=== PATIENT | female | born 1995 | race Two or more races ===

== ENCOUNTER 2024-07-12 16:40 | Emergency (ER) | payer OTHER ==
[~2024-07-12] VITALS: Ht 162.6 cm; Wt 57.6 kg
[2024-07-12 16:54] VITALS: BP 118/73; TEMP 97.9; O2SAT 99
[2024-07-12] MEDS ORDERED: IBUP-1490 PO (17:04)
== END 2024-07-12 17:07 | disposition home or self-care (01) ==
LOC: ER 16:55
DX: M76.62 Achilles tendinitis, left leg (principal); M25.572 Pain in left ankle and joints of left foot; X50.1XXA Overexertion from prolonged static or awkward postures, initial encounter; Y93.89 Activity, other specified; Y92.89 Other specified places as the place of occurrence of the external cause; Y99.8 Other external cause status